=== PATIENT | male | born 1960 | race Caucasian/White ===

== ENCOUNTER 2019-09-13 19:12 | Emergency (ER) | payer OTHER ==
[2019-09-13 19:32] VITALS: BP 181/103; PULSE 70; RESP 18; TEMP 98.1
--- NOTE | 2019-09-13 20:19 | ED ---
General Adult HPI - General Chief complaint: Drug Screen Stated complaint: [facility]-drug test needed Time Seen by Provider: 09/13/19 19:36 Source: patient Mode of arrival: ambulatory Limitations: no limitations - History of Present Illness Initial comments: 59-year-old male presenting today for chief complaint of drug screen. Patient states that he ran into an object with a machine at work he states that there is no injury to himself to other individuals. Patient has no complaints she states he was simply sent here for drug screening. Patient denies any head pain neck pain back pain he denies any chest pain shortness of breath headache or dizziness. Patient has no other complaints patient on arrival has elevated blood pressure, but states that he has been monitoring this with his primary care provider - Related Data Allergies Allergy/AdvReac Type Severity Reaction Status Date / Time No Known Allergies Allergy Verified 09/13/19 19:32 Review of Systems ROS Statement: Those systems with pertinent positive or pertinent negative responses have been documented in the HPI. ROS Other: All systems not noted in ROS Statement are negative. Past Medical History Past Medical History: Hypertension History of Any Multi-Drug Resistant Organisms: None Reported Past Psychological History: No Psychological Hx Reported Smoking Status: Current every day smoker Past Alcohol Use History: Occasional Past Drug Use History: None Reported General Exam - General Exam Comments Initial Comments: General: The patient is awake and alert, in no distress, and does not appear acutely ill. Eye: Pupils are equal, round and reactive to light, extra-ocular movements are intact. No nystagmus. There is normal conjunctiva bilaterally. No signs of icterus. Ears, nose, mouth and throat: There are moist mucous membranes and no oral lesions. Neck: The neck is supple, there is no tenderness or JVD. Cardiovascular: There is a regular rate and rhythm. No murmur, rub or gallop is appreciated. Respiratory: Lungs are clear to auscultation, respirations are non-labored, breath sounds are equal. No wheezes, stridor, rales, or rhonchi. Musculoskeletal: Normal ROM, no tenderness. Strength 5/5. Sensation intact. Radila pulses equal bilaterally 2+. Neurological: A&O x 3. CN II-XII intact grossly, There are no obvious motor or sensory deficits. Coordination appears grossly intact. Speech is normal. Skin: Skin is warm and dry and no rashes or lesions are noted. Psychiatric: Cooperative, appropriate mood & affect, normal judgment. Limitations: no limitations Course Vital Signs 09/13/19 19:27 Temperature 98.1 F Pulse Rate 70 Respiratory 18 Rate Blood Pressure 181/103 O2 Sat by Pulse 98 Oximetry Medical Decision Making - Medical Decision Making Not intoxicating 59-year-old male presenting for urine drug screen. Patient is no abnormal physical examination findings complaints of elevated blood pressure however mounting with primary care provider patient also states that this time he feels stressed. Patient has no positive review of systems physical examination findings concerning for end organ damage at this time. I feel he is stable for discharge with primary care follow-up for asymptomatic hypertension and may resume work duties as urine drug and breath alcohol was negative. Patient discharged appearing well. Disposition Clinical Impression: Elevated blood pressure reading, Normal physical exam, Encounter for drug screening Disposition: HOME SELF-CARE Condition: Good Instructions (If sedation given, give patient instructions): Chronic Hypertension (ED) Additional Instructions: Please use medication as discussed. Please follow-up with family doctor in the next 2 days. Please return to emergency room if the symptoms increase or worsen or for any other concerns. Is patient prescribed a controlled substance at d/c from ED?: No Referrals: None,Stated [Primary Care Provider] - 1-2 days [facility] - 1-2 days Time of Disposition: 20:19
== END 2019-09-13 20:41 | disposition home or self-care (01) ==
LOC: EC 19:12
DX: Z02.83 Encounter for blood-alcohol and blood-drug test (principal); I10 Essential (primary) hypertension; F17.200 Nicotine dependence, unspecified, uncomplicated
CPT/HCPCS: 99282